=== PATIENT | female | born 1990 | race Caucasian/White ===

== ENCOUNTER 2019-06-08 23:50 | Emergency (ER) | payer MEDICAID ==
[~2019-06-08] VITALS: Ht 162.6 cm; Wt 58.5 kg
[~2019-06-08 23:50] MED LIST: AFRIN NASAL SPR30 ML NASAL; AZITHROMYCIN250 MG ORAL; GABAPENTIN300 MG ORAL; IBUPROFEN600 M1 PO; NKM; NORCO 5-325 TA1 EACH ORAL
--- NOTE | 2019-06-09 00:08 | NUR ---
ED Nurse Note: pt ambulated to ed c/o abd pain for 2 months, pt denies nausea/vomiting. pt shows no acute signs of distress.
[2019-06-09 00:09] VITALS: BP 106/69
--- NOTE | 2019-06-09 00:25 | Emergency Room Report ---
History of Present Illness General Chief Complaint: Abdominal Pain Source: Patient Present Illness HPI Is a 29-year-old female with no past medical history presents with chief complaint of left abdominal pain. Onset for 2 and half months now. Intermittent in nature. Localized to the left flank left lower quadrant area. Worse with sneezing. Pain is intermittent. She also has rectal bleeding with bowel movement he denies any fever chills but denies dysuria frequency. Slight worsening of her usual discharge. No nausea no vomiting. Pain is 9 out of 10. Worse tonight when she sneezed. She felt like something may have ruptured. She had ruptured ovarian cyst that required surgery for bleeding. Allergies: Coded Allergies: ASPIRIN (Unverified Allergy, Unknown, 02/05/14) SWOOLLEN FACE Patient History Past Medical History: see triage record, old chart reviewed Pertinent Family History: none Social History: Denies: smoking Last Menstrual Period: 05/18/2019 Now: No : 3 Para: 3 Immunizations: other Reviewed Nursing Documentation: PMH: Agreed; PSxH: Agreed Review of Systems Eye: Denies: eye pain, blurred vision ENT: Denies: ear pain, nose congestion, throat swelling Respiratory: Denies: cough, shortness of breath Cardiovascular: Denies: chest pain, palpitations Gastrointestinal: Reports: abdominal pain; Denies: diarrhea, nausea, vomiting Musculoskeletal: Denies: back pain, joint pain Skin: Denies: rash Neurological: Denies: headache, numbness Endocrine: Denies: increased thirst, increased urine Hematologic/Lymphatic: Denies: easy bruising All Other Systems: negative except mentioned in HPI Physical Exam Vital Signs Date Time Temp Pulse Resp B/P (MAP) Pulse Ox O2 Delivery O2 Flow Rate FiO2 06/08/19 23:58 97.9 90 16 106/69 (81) 98 Room Air Vitals normal Sp02 EP Interpretation: reviewed, normal General Appearance: well appearing, no apparent distress, alert Head: normocephalic, atraumatic Eyes: bilateral eye PERRL, bilateral eye EOMI ENT: hearing grossly normal, normal pharynx Neck: full range of motion, supple, no meningismus Respiratory: chest non-tender, lungs clear, normal breath sounds Cardiovascular #1: regular rate, rhythm, no murmur Gastrointestinal: normal bowel sounds, no mass, no organomegaly, no bruit, non- distended, tenderness - Mild, left lower quadrant Rectal: other - She does not want rectal exam done Musculoskeletal: back normal, gait/station normal, normal range of motion Psychiatric: mood/affect normal Medical Decision Making Diagnostic Impression: Primary Impression: Abdominal pain Qualified Codes: R10.32 - Left lower quadrant pain Additional Impression: Rectal bleeding ER Course Patient presents with abdominal pain in the left lower quadrant. No evidence of infection or acute abdomen. Differential includes other pain, diverticulitis , pelvic pathology to name a few. Rectal bleeding is most likely hemorrhoidal in nature. She refused to have a rectal exam done. Will discharge home. She may benefit from referral to see GI doctor. CT/MRI/US Diagnostic Results CT/MRI/US Diagnostic Results : Imaging Test Ordered: CT abdomen pelvis Impression Read by radiologist. No acute abdomen. No diverticulitis or appendicitis. Diverticulosis of descending colon. Last Vital Signs Date Time Temp Pulse Resp B/P (MAP) Pulse Ox O2 Delivery O2 Flow Rate FiO2 06/09/19 00:09 90 16 Room Air 06/09/19 00:09 97.9 106/69 98 Status: improved Disposition: HOME, SELF-CARE Condition: Stable Scripts Ibuprofen* (MOTRIN*) 600 Mg Tablet 600 MG ORAL THREE TIMES A DAY, #30 TAB 0 Refills Prov: Akshat Talamantes MD 06/09/19 Referrals: [facility],REFERRING (PCP) Patient Instructions: Abdominal Pain, Adult Additional Instructions: Follow-up with your doctor in 7 days. You may benefit from a referral to see a GI doctor for colonoscopy. Return if symptoms worsen. Akshat Talamantes MD Jun 09, 2019 00:25
[2019-06-09] MEDS ORDERED: Ketorolac 30mg Inj IV ONE (00:30)
[2019-06-09 00:31] LABS: APPEARANCE,URINE CLEAR; BILIRUBIN, URINE NEGATIVE (NEGATIVE); COLOR,URINE PALE YELLOW; GLUCOSE, URINE (UA) NEGATIVE (NEGATIVE); KETONES,URINE NEGATIVE (NEGATIVE); LEUKOCYTE ESTERASE ,URINE 1+ (NEGATIVE); NITRITE,URINE NEGATIVE (NEGATIVE); PH,URINE 7 (4.5-8.0); PROTEIN,URINE NEGATIVE (NEGATIVE); UROBILINOGEN,URINE NORMAL MG/DL (0.0-1.0)
[2019-06-09 00:42] LABS: BASOPHILS % (AUTO) 0.9 % (0.0-2.0); EOSINOPHILS % (AUTO) 3.5 % (0.0-3.0); HEMATOCRIT 42.5 % (37.0-47.0); HEMOGLOBIN 14.4 G/DL (12.0-16.0); LYMPHOCYTES % (AUTO) 24.1 % (20.0-45.0); MEAN CORPUSCULAR VOLUME 92 FL (80-99); MONOCYTES % (AUTO) 6.9 % (1.0-10.0); NEUTROPHILS % (AUTO) 64.7 % (45.0-75.0); PLATELET COUNT 303 K/UL (150-450); RED BLOOD COUNT 4.63 M/UL (4.20-5.40); RED CELL DISTRIBUTION WIDTH 11.6 % (11.6-14.8); WHITE BLOOD COUNT 8.6 K/UL (4.8-10.8)
--- NOTE | 2019-06-09 00:50 | NUR ---
ED Nurse Note: pt left for CT
[2019-06-09 00:55] LABS: ANION GAP 7 mmol/L (5-15); BLOOD UREA NITROGEN 8 mg/dL (7-18); CARBON DIOXIDE 27 MMOL/L (21-32); CHLORIDE 104 MMOL/L (98-107); CREATININE 0.7 MG/DL (0.55-1.30); POTASSIUM 3.9 MMOL/L (3.5-5.1); SODIUM 138 MMOL/L (136-145)
[2019-06-09 01:00] LABS: ALANINE AMINOTRANSFERASE 17 U/L (12-78); ALBUMIN 4.3 G/DL (3.4-5.0); ALBUMIN/GLOBULIN RATIO 1.3 (1.0-2.7); ALKALINE PHOSPHATASE 61 U/L (46-116); ASPARTATE AMINO TRANSFERASE 9 U/L (15-37); BILIRUBIN,TOTAL 0.2 MG/DL (0.2-1.0)
--- NOTE | 2019-06-09 01:00 | NUR ---
ED Nurse Note: pt returned from CT
--- NOTE | 2019-06-09 01:40 | Diagnostic Imaging Report ---
Indication: Abdominal pain Technique: Continuous helical transaxial imaging of the abdomen and pelvis was obtained from the lung bases to the pubic symphysis. No intravenous contrast was administered. Coronal 2-D reformats were also obtained. Automatic Exposure Control was utilized. Total Dose length Product (DLP): [address] Dose Index Volume (CTDIvol): 20.90 mGy Comparison: none Findings: There is beam starvation artifact present. The lung bases are clear. Gallbladder is unremarkable. No hydronephrosis or renal stones are identified. No evidence of bowel obstruction, ascites. Appendix is not definitely seen. There are no secondary signs of acute appendicitis. Uterus noted. IMPRESSION: No acute findings. Study is limited due to artifact likely from beam starvation. The CT scanner at [facility] is accredited by the [employer] and the scans are performed using dose optimization techniques as appropriate to a performed exam including Automatic Exposure control.
[2019-06-09] MEDS ORDERED: IBUPROFEN600 MG ORAL (01:52)
[2019-06-09 02:13] VITALS: BP 110/74
--- NOTE | 2019-06-09 02:13 | NUR ---
ED Nurse Note: pt is cleared to be d/c per ermd, pt discharge and aftercare instruction provided w/ prescription, pt education done via discussion and handout, pt advised to follow up with pcp or return to ed if changes in condition, vss, ambulatory w/ steady gait, iv d/c and id band removed. pt accompanied by family and left w all belongings.
== END 2019-06-09 02:13 | disposition home or self-care (01) ==
LOC: EMR 06-09 00:14
DX: R10.32 Left lower quadrant pain (principal); K62.5 Hemorrhage of anus and rectum; Z88.6 Allergy status to analgesic agent
CPT/HCPCS: 36415; 74176; 80053; 81003; 81025; 83690; 85025; 96361; 96374; J1885; Z7502; 99284